=== PATIENT | male | born 1975 | race Caucasian/White ===

== ENCOUNTER 2017-07-16 00:57 | Emergency (ER) | payer OTHER ==
[~2017-07-16] VITALS: Ht 185.4 cm; Wt 108.0 kg
[2017-07-16 02:17] VITALS: BP 123/87
== END 2017-07-16 03:40 | disposition home or self-care (01) ==
LOC: ER 00:57
DX: T50.904A Poisoning by unspecified drugs, medicaments and biological substances, undetermined, initial encounter (principal); H10.212 Acute toxic conjunctivitis, left eye; Y92.128 Other place in nursing home as the place of occurrence of the external cause; Y99.0 Civilian activity done for income or pay
CPT/HCPCS: 99283